=== PATIENT | male | born 1995 | race Asian ===

== ENCOUNTER 2025-02-17 10:58 | Inpatient (IN) | payer SELFPAY ==
[~2025-02-17] VITALS: Ht 160 cm; Wt 119.3 kg
[2025-02-17 11:04] VITALS: O2SAT 98
[2025-02-17 12:42] LABS: BASOPHILS % 0.7 % (0.0-2.0); EOSINOPHILS % 2.4 % (0.0-5.0); HEMATOCRIT. 49.7 % (42.0-52.0); HEMOGLOBIN. 16.5 g/dL (14.0-18.0); LYMPHOCYTES % 23.8 % (20.0-50.0); MEAN PLATELET VOLUME 7.5 fl (7.4-10.4); MONOCYTES % 6.7 % (2.0-8.0); NEUTROPHILS % 66.4 % (40.0-76.0); PLATELET 394 x1000/uL (130-400); RED BLOOD CELL COUNT 5.69 mill/uL (4.7-6.1); RED CELL DISTRIBUTION WIDTH 13.5 % (11.6-14.6)
[2025-02-17 12:57] LABS: CREATININE 0.8 mg/dL (0.6-1.3)
[2025-02-17 12:58] LABS: TROPONIN I HIGH SENSITIVITY < 4 ng/L (3.0-53); UREA NITROGEN BLOOD 9 mg/dL (9-23)
[2025-02-17 12:59] LABS: ASPARTATE AMINOTRANSFERASE 44 IU/L (<34)
[2025-02-17 13:00] LABS: BILIRUBIN DIRECT < 0.1 mg/dL (<=3.0); BILIRUBIN TOTAL 0.3 mg/dL (0.1-1.0); PROTEIN TOTAL 7.9 g/dL (6.0-8.3)
[2025-02-17] MEDS: ACETAMINOPHEN 325MG TABLET PO ONE (13:18)
[2025-02-17] MEDS: ASPIRIN 81MG TABLET PO ONE (13:40)
[2025-02-17 15:05] LABS: TRIGLYCERIDE 488.0 mg/dL (0-150)
[2025-02-17 15:06] LABS: LDL CHOLESTEROL 113.0 mg/dL (5-100)
[2025-02-17 15:08] LABS: TROPONIN I HIGH SENSITIVITY < 4 ng/L (3.0-53)
[2025-02-17] MEDS ORDERED: GUAIFENESIN 200MG/10ML SUGAR FREE UDC PO PRN (15:15)
[2025-02-17] MEDS ORDERED: ACETAMINOPHEN 325MG TABLET PO PRN ×2 (15:15)
[2025-02-17] MEDS ORDERED: IPRATROPIUM/ALBUTEROL 0.5-3(2.5)MG/3ML NEB HHN PRN (15:15)
[2025-02-17] MEDS ORDERED: DOCUSATE SODIUM 100MG CAPSULE PO PRN (15:15)
[2025-02-17] MEDS ORDERED: ONDANSETRON HCL 4MG/2ML INJ IV PRN (15:15)
[2025-02-17] MEDS ORDERED: CLONIDINE 0.1MG TABLET PO PRN (15:15)
[2025-02-17 16:09] LABS: INR 0.9
[2025-02-17 16:15] LABS: ASPARTATE AMINOTRANSFERASE 45 IU/L (<34); BILIRUBIN DIRECT 0.1 mg/dL (<=3.0); BILIRUBIN TOTAL 0.3 mg/dL (0.1-1.0); PHOSPHORUS 3.3 mg/dL (2.5-4.9); PROTEIN TOTAL 7.8 g/dL (6.0-8.3)
[2025-02-17 16:17] LABS: T4 FREE 1.18 ng/dL (0.89-1.76)
[2025-02-17 16:30] VITALS: BP 143/98; PULSE 70; RESP 19; TEMP 36.5; O2SAT 99
[2025-02-17] MEDS: PANTOPRAZOLE 40MG DR TABLET PO SCH (16:53)
[2025-02-17] MEDS: LOSARTAN 50 MG TABLET PO SCH (16:54)
[2025-02-17 16:57] VITALS: BP 143/98; PULSE 70; RESP 19; TEMP 36.5292
[2025-02-17 18:48] LABS: HEPATITIS C AB NON REACTIVE (Neg) (Negative)
[2025-02-17 20:00] VITALS: BP 131/87; PULSE 67; RESP 18; TEMP 36.6; O2SAT 98
[2025-02-17 22:21] LABS: CLARITY URINE CLEAR (CLEAR); COLOR URINE YELLOW (YELLOW); GLUCOSE URINE NEGATIVE (NEGATIVE); KETONES URINE NEGATIVE (NEGATIVE); LEUKOCYTE ESTERASE URINE TRACE (NEGATIVE); NITRITE URINE NEGATIVE (NEGATIVE); OCCULT BLOOD URINE NEGATIVE (NEGATIVE); PH URINE 7.0 (4.5-8.0); PROTEIN URINE 2+ (NEGATIVE); SPECIFIC GRAVITY URINE 1.017 (1.005-1.030); UROBILINOGEN URINE 1.0 E.U./dL (0.2-1.0)
[2025-02-17 22:30] LABS: BACTERIA URINE TRACE; RBC URINE NONE SEEN /hpf (0-2); SQUAMOUS EPITHELIAL CELL URINE RARE /lpf (RARE/1+)
[2025-02-17 22:38] LABS: *AMPHETAMINES SCREEN URINE NEGATIVE (NEGATIVE); *BARBITURATES SCREEN URINE NEGATIVE (NEGATIVE); *BENZODIAZEPINES SCREEN URINE NEGATIVE (NEGATIVE); *COCAINE SCREEN URINE NEGATIVE (NEGATIVE)
[2025-02-17 22:39] LABS: CANNABINOID URINE SCREEN NEGATIVE (NEGATIVE); ECSTASY MDMA SCREEN URINE NEGATIVE (NEGATIVE); METHADONE URINE SCREEN NEGATIVE (NEGATIVE); OPIATES URINE SCREEN NEGATIVE (NEGATIVE); PHENCYCLIDINE URINE SCREEN NEGATIVE (NEGATIVE)
[2025-02-18] VITALS: BP 120/80; PULSE 70; RESP 18; TEMP 36.6; O2SAT 98
[2025-02-18 04:00] VITALS: BP 116/79; PULSE 63; RESP 18; TEMP 36.4; O2SAT 98
[2025-02-18 08:00] VITALS: BP 128/88; PULSE 60; RESP 18; TEMP 36.2; O2SAT 98
[2025-02-18 08:11] LABS: BASOPHILS % 0.6 % (0.0-2.0); EOSINOPHILS % 3.7 % (0.0-5.0); HEMATOCRIT. 47.6 % (42.0-52.0); HEMOGLOBIN. 15.8 g/dL (14.0-18.0); LYMPHOCYTES % 32.3 % (20.0-50.0); MEAN PLATELET VOLUME 7.5 fl (7.4-10.4); MONOCYTES % 9.4 % (2.0-8.0); NEUTROPHILS % 54.0 % (40.0-76.0); PLATELET 380 x1000/uL (130-400); RED BLOOD CELL COUNT 5.45 mill/uL (4.7-6.1); RED CELL DISTRIBUTION WIDTH 13.7 % (11.6-14.6)
[2025-02-18] MEDS: ASPIRIN 81MG EC TABLET PO SCH (08:38)
[2025-02-18 08:40] VITALS: BP 128/88; PULSE 60; RESP 18; TEMP 97.2
[2025-02-18 08:40] LABS: CREATININE 0.8 mg/dL (0.6-1.3); UREA NITROGEN BLOOD 8 mg/dL (9-23)
== END 2025-02-18 10:41 | disposition home or self-care (01) | DRG 243 ==
LOC: ER 10:58 → 8WST 14:25 → EDBEDREQTM 14:27 → EDBEDREQ 14:27 → ENRESERV 16:31
PROVIDERS: ADMIT Internal Medicine; ATTEND Internal Medicine
DX: K21.9 Gastro-esophageal reflux disease without esophagitis (principal); D72.829 Elevated white blood cell count, unspecified; E66.01 Morbid (severe) obesity due to excess calories; E78.00 Pure hypercholesterolemia, unspecified; I10 Essential (primary) hypertension; E78.1 Pure hyperglyceridemia; R73.03 Prediabetes; G47.33 Obstructive sleep apnea (adult) (pediatric); K76.0 Fatty (change of) liver, not elsewhere classified; Z79.82 Long term (current) use of aspirin; Z79.899 Other long term (current) drug therapy; Z82.49 Family history of ischemic heart disease and other diseases of the circulatory system; Z68.42 Body mass index [BMI] 45.0-49.9, adult
CPT/HCPCS: 36415; 71045; 80048; 80061; 80076; 80305; 81003; 83036; 83735; 84100; 84145; 84439; 84443; 84484; 85025; 85379; 86705; 87340; 93005; 99285